=== PATIENT | male | born 1985 | race Caucasian/White ===

== ENCOUNTER 2017-05-13 20:09 | Emergency (ER) | payer MEDICAID ==
[~2017-05-13] VITALS: Ht 195.6 cm; Wt 146.0 kg
[2017-05-13 20:43] VITALS: BP 158/104
== END 2017-05-13 23:59 | disposition left against medical advice (07) ==
LOC: ER 21:05
DX: R00.2 Palpitations (principal); R11.0 Nausea; Z53.21 Procedure and treatment not carried out due to patient leaving prior to being seen by health care provider

== ENCOUNTER 2017-12-24 00:54 | Emergency (ER) | payer SELFPAY ==
[~2017-12-24] VITALS: Ht 195.6 cm; Wt 146.0 kg
[2017-12-24] MEDS ORDERED: IBUPROFEN 600MG TABLET PO ONE (05:00)
[2017-12-24] MEDS ORDERED: TETANUS, DIPHTHERIA, PERTUSSIS VAC/PF 0.5ML (>7YR OLD) IM ONE (05:00)
[2017-12-24 05:11] VITALS: BP 145/89
== END 2017-12-24 05:12 | disposition home or self-care (01) ==
LOC: ER 02:04
DX: S91.331A Puncture wound without foreign body, right foot, initial encounter (principal); W45.0XXA Nail entering through skin, initial encounter; Y93.89 Activity, other specified; Y92.018 Other place in single-family (private) house as the place of occurrence of the external cause; Z23 Encounter for immunization
CPT/HCPCS: 90471; 90715; 99283